=== PATIENT | male | born 1930 | race Caucasian/White ===

== ENCOUNTER 2017-08-20 12:18 | Inpatient (IN) | payer MEDICARE ==
[~2017-08-20] VITALS: Ht 182.9 cm; Wt 86.4 kg
[~2017-08-20 12:18] MED LIST: AMLO10TA4 PO; ATOR20TA66 PO; CARV3.12 PO; CHOL400C8 PO; CLOP75TA35 PO; FOLI0.4T2 PO; GABA-532 PO; MAGN30TA2 PO; MULT-342 PO; RIVA10TA PO; TURM500C7 PO; UBID1CAP54 PO; VITA-104 PO; VITC500T PO; ZINC50TA37 PO
[2017-08-20 12:49] LABS: BASOPHILS % (AUTO) 0.1 % (0-1); EOSINOPHILS # (AUTO) 0.2 X10'3 (0-0.9); HEMATOCRIT 40.8 % (42.0-52.0); HEMOGLOBIN 13.7 g/dl (14.0-17.9); LYMPHOCYTES # (AUTO) 1.1 X10'3 (1.1-4.8); LYMPHOCYTES % (AUTO) 4.9 % (21-51); MEAN CORPUSCULAR HGB CONC 33.6 % (33.0-36.5); MEAN CORPUSCULAR VOLUME 95.2 FL (78-98); MEAN PLATELET VOLUME 7.1 FL (7.4-10.4); MONOCYTES # (AUTO) 0.2 X10'3 (0-0.9); MONOCYTES % (AUTO) 1.1 % (2-12); NEUTROPHILS # (AUTO) 20.8 X10'3 (1.8-7.7); NEUTROPHILS % (AUTO) 92.9 % (42-75); PLATELET COUNT 295 X10'3 (140-440); RED BLOOD COUNT 4.28 X10'6 (4.70-6.10); RED CELL DISTRIBUTION WIDTH 14.6 % (11.5-14.5); WHITE BLOOD COUNT 22.4 X10'3 (4.5-11.0)
[2017-08-20 12:59] LABS: INR 1.2 INR; PARTIAL THROMBOPLASTIN TIME 31 SECONDS (22-32); PROTHROMBIN TIME 11.9 SECONDS (9.0-12.0)
[2017-08-20 13:07] LABS: ALANINE AMINOTRANSFERASE 55 U/L (12-78); ALBUMIN 3.4 G/DL (3.4-5.0); ALBUMIN/GLOBULIN RATIO 0.9 (1.1-1.5); ALKALINE PHOSPHATASE 173 IU/L (46-116); ANION GAP 8 (8-16); ASPARTATE AMINO TRANSFERASE 50 U/L (10-37); BILIRUBIN,TOTAL 1.1 MG/DL (0.1-1.0); BLOOD UREA NITROGEN 16 MG/DL (7-18); BUN/CREATININE RATIO 21.9 (5.4-32.0); CALCIUM 9.1 MG/DL (8.5-10.1); CHLORIDE 101 MMOL/L (99-107); CREATININE 0.73 MG/DL (0.60-1.10); GLUCOSE 113 MG/DL (70-104); MAGNESIUM 1.7 MG/DL (1.5-2.4); POTASSIUM 3.9 MMOL/L (3.5-5.1); SODIUM 135 MMOL/L (135-145); TOTAL CARBON DIOXIDE 25.9 MMOL/L (24-32); eGFR > 90 ML/MIN
[2017-08-20 13:27] LABS: CLARITY,URINE Clear (Clear); COLOR,URINE Yellow (Yellow); GLUCOSE, URINE Negative (Neg); KETONES,URINE Negative (Neg); LEUKOCYTE ESTERASE ,URINE Moderate (Neg); NITRITES, URINE Negative (Neg); OCCULT BLOOD,URINE Small (Neg); PROTEIN,URINE Negative (Neg)
[2017-08-20 13:38] LABS: UA COLLECTION TYPE STRAIGHT CATH
[2017-08-20 13:43] LABS: AMORPHOUS URATES 1+; BACTERIA,URINE 1+ /HPF (Neg); SQUAMOUS EPITHELIAL CELL,UR NONE SEEN /LPF (FEW); WBC CLUMPS,URINE FEW /HPF (NEGATIVE); WBC,URINE 30-50 /HPF (0-4)
[2017-08-20] MEDS ORDERED: normal saline 1000ML IV soln IVB ONE (13:45)
[2017-08-20] MEDS ORDERED: ondansetron 4mg rapidly disintigrating tab PO ONE (14:25)
[2017-08-20] MEDS ORDERED: oxyCODONE IR 5mg (immed. release) tablet PO ONE (14:25)
[2017-08-20] MEDS ORDERED: cefTRIAXone 1g/NS 100ml IVPB 100 ML IV ONE (14:50)
[2017-08-20] MEDS ORDERED: magnesium 2GM in 50ml NS 50 ML IV PRN (15:30)
[2017-08-20] MEDS ORDERED: potassium Cl 40MEQ/NS 500ml 500 ML IV PRN ×2 (15:30)
[2017-08-20] MEDS ORDERED: ondansetron/PF 4mg/2ml inj IV PRN (15:30)
[2017-08-20] MEDS ORDERED: magnesium hydroxide 30ml (MOM) UD suspension PO PRN (15:30)
[2017-08-20] MEDS ORDERED: potassium Cl 20 mEq SR tablet PO PRN ×2 (15:30)
[2017-08-20] MEDS ORDERED: mag hydrox/Alum hydrox/simeth 30ml oral suspension PO PRN (15:30)
[2017-08-20] MEDS ORDERED: azithromycin 250mg tablet PO ONE (15:30)
[2017-08-20] MEDS ORDERED: magnesium Cl slow-release 64mg tablet PO PRN (15:30)
[2017-08-20] MEDS ORDERED: magnesium 4gm in 100ml NS 100 ML IV PRN (15:30)
[2017-08-20 16:30] VITALS: BP 121/62
[2017-08-20] MEDS: acetaminophen 325mg tablet PO PRN (17:44)
[2017-08-20] MEDS ORDERED: MAGNESIUM PO SCH (20:00)
[2017-08-20] MEDS: cholecalciferol (vitamin D) 400 unit tablet PO SCH (21:00)
[2017-08-20] MEDS ORDERED: gabapentin 300mg capsule PO SCH (21:00)
[2017-08-20 22:00] VITALS: BP 154/78
[2017-08-21] MEDS: acetaminophen 325mg tablet PO PRN ×2 (05:04→17:41)
[2017-08-21 06:00] VITALS: BP 133/77
[2017-08-21 06:03] LABS: BASOPHILS # (AUTO) 0.1 X10'3 (0-0.2); BASOPHILS % (AUTO) 0.4 % (0-1); EOSINOPHILS % (AUTO) 0.1 % (0-6); HEMATOCRIT 36.7 % (42.0-52.0); HEMOGLOBIN 12.6 g/dl (14.0-17.9); LYMPHOCYTES # (AUTO) 2.4 X10'3 (1.1-4.8); LYMPHOCYTES % (AUTO) 8.9 % (21-51); MEAN CORPUSCULAR HEMOGLOBIN 32.6 PG (27.0-31.0); MEAN CORPUSCULAR HGB CONC 34.4 % (33.0-36.5); MEAN CORPUSCULAR VOLUME 94.7 FL (78-98); MEAN PLATELET VOLUME 7.2 FL (7.4-10.4); MONOCYTES # (AUTO) 1.9 X10'3 (0-0.9); MONOCYTES % (AUTO) 7.1 % (2-12); NEUTROPHILS # (AUTO) 22.1 X10'3 (1.8-7.7); NEUTROPHILS % (AUTO) 83.5 % (42-75); PLATELET COUNT 273 X10'3 (140-440); RED BLOOD COUNT 3.87 X10'6 (4.70-6.10); RED CELL DISTRIBUTION WIDTH 14.7 % (11.5-14.5)
[2017-08-21 06:17] LABS: WHITE BLOOD COUNT 26.5 X10'3 (4.5-11.0)
[2017-08-21 06:25] LABS: ALANINE AMINOTRANSFERASE 51 U/L (12-78); ALBUMIN 2.9 G/DL (3.4-5.0); ALBUMIN/GLOBULIN RATIO 0.8 (1.1-1.5); ALKALINE PHOSPHATASE 155 IU/L (46-116); ANION GAP 7 (8-16); ASPARTATE AMINO TRANSFERASE 34 U/L (10-37); BILIRUBIN,TOTAL 1.5 MG/DL (0.1-1.0); BLOOD UREA NITROGEN 10 MG/DL (7-18); BUN/CREATININE RATIO 11.8 (5.4-32.0); CALCIUM 8.8 MG/DL (8.5-10.1); CHLORIDE 100 MMOL/L (99-107); CREATININE 0.85 MG/DL (0.60-1.10); GLUCOSE 116 MG/DL (70-104); MAGNESIUM 1.7 MG/DL (1.5-2.4); POTASSIUM 3.8 MMOL/L (3.5-5.1); SODIUM 134 MMOL/L (135-145); TOTAL CARBON DIOXIDE 26.8 MMOL/L (24-32); TOTAL PROTEIN 6.5 G/DL (6.4-8.2); eGFR 86 ML/MIN
[2017-08-21 06:57] LABS: PLATELET ESTIMATE NORMAL; TOTAL CELLS COUNTED 100
[2017-08-21] MEDS: K and/or MAG REPLACEMENT MC SCH (07:48)
[2017-08-21] MEDS: folic acid 0.4mg tablet PO SCH (07:55)
[2017-08-21] MEDS: amLODIPine 5mg tablet PO SCH (07:56)
[2017-08-21] MEDS: zinc sulfate 220mg capsule PO SCH (07:56)
[2017-08-21] MEDS: ascorbic acid 500mg tablet PO SCH (07:56)
[2017-08-21] MEDS: vitamin B comp w/Vit. C tab 1 TAB TABLET PO SCH (07:56)
[2017-08-21] MEDS: atorvastatin 20mg tablet PO SCH (07:56)
[2017-08-21] MEDS: azithromycin 250mg tablet PO SCH (07:56)
[2017-08-21] MEDS: multivitamins, therapeutics tablet PO SCH (07:56)
[2017-08-21] MEDS ORDERED: cefTRIAXone 1g/NS 100ml IVPB 100 ML IV SCH (08:00)
[2017-08-21] MEDS: clopidogrel 75mg tablet PO SCH (08:00)
[2017-08-21] MEDS ORDERED: non-formulary drug (Ubidecarenone/Vit E Acetate (Co Q-10 100 Mg Softgel) 1 EACH) PO SCH (08:00)
[2017-08-21] MEDS: carVEDilol 3.125mg tablet PO SCH (08:00)
[2017-08-21] MEDS ORDERED: rivaroxaban 10mg tablet PO SCH (08:00)
[2017-08-21] MEDS: cholecalciferol (vitamin D) 400 unit tablet PO SCH ×3 (08:00→21:00)
[2017-08-21 10:00] VITALS: BP 122/59
[2017-08-21] MEDS ORDERED: AMLO5TAB10 PO (10:11)
[2017-08-21] MEDS ORDERED: sennosides 8.6mg tablet PO PRN (10:15)
[2017-08-21] MEDS: piperacillin/tazo 3.375gm/50ml 50 ML IV SCH ×3 (10:52→19:58)
[2017-08-21] MEDS: vancomycin/NS 1 GM ADD-VANTAGE 250 ML IV SCH ×2 (11:21→13:47)
[2017-08-21] MEDS: gabapentin 300mg capsule PO SCH ×2 (13:47→20:59)
[2017-08-21] MEDS: potassium Cl 20 mEq SR tablet PO SCH (17:40)
[2017-08-21 18:00] VITALS: BP 128/69
[2017-08-21] MEDS: magnesium oxide 400mg tablet PO SCH (19:58)
[2017-08-21] MEDS: apixaban 5mg tablet PO SCH (19:58)
[2017-08-21] MEDS: Melatonin 3mg tablet PO SCH (20:59)
[2017-08-21] MEDS: ROPINIRole 0.25mg tablet PO SCH (20:59)
[2017-08-21 22:00] VITALS: BP 119/67
[2017-08-21] MEDS: vancomycin inj 1,250 MG in normal saline 250ml IV soln 250 ML IV SCH (23:04)
[2017-08-22] MEDS: piperacillin/tazo 3.375gm/50ml 50 ML IV SCH ×4 (02:02→20:09)
[2017-08-22 06:00] LABS: BASOPHILS % (AUTO) 0.1 % (0-1); EOSINOPHILS # (AUTO) 0.5 X10'3 (0-0.9); EOSINOPHILS % (AUTO) 2.8 % (0-6); HEMATOCRIT 36.9 % (42.0-52.0); HEMOGLOBIN 12.5 g/dl (14.0-17.9); LYMPHOCYTES % (AUTO) 11.5 % (21-51); MEAN CORPUSCULAR HEMOGLOBIN 32.4 PG (27.0-31.0); MEAN CORPUSCULAR VOLUME 95.2 FL (78-98); MEAN PLATELET VOLUME 7.3 FL (7.4-10.4); MONOCYTES # (AUTO) 1.1 X10'3 (0-0.9); MONOCYTES % (AUTO) 6.4 % (2-12); NEUTROPHILS # (AUTO) 13.7 X10'3 (1.8-7.7); NEUTROPHILS % (AUTO) 79.2 % (42-75); PLATELET COUNT 273 X10'3 (140-440); RED BLOOD COUNT 3.88 X10'6 (4.70-6.10); WHITE BLOOD COUNT 17.3 X10'3 (4.5-11.0)
[2017-08-22 06:31] LABS: ALANINE AMINOTRANSFERASE 40 U/L (12-78); ALBUMIN 2.8 G/DL (3.4-5.0); ALBUMIN/GLOBULIN RATIO 0.7 (1.1-1.5); ALKALINE PHOSPHATASE 152 IU/L (46-116); ANION GAP 6 (8-16); ASPARTATE AMINO TRANSFERASE 23 U/L (10-37); BILIRUBIN,TOTAL 0.8 MG/DL (0.1-1.0); BLOOD UREA NITROGEN 10 MG/DL (7-18); CHLORIDE 103 MMOL/L (99-107); CREATININE 0.91 MG/DL (0.60-1.10); GLUCOSE 123 MG/DL (70-104); MAGNESIUM 1.8 MG/DL (1.5-2.4); POTASSIUM 3.9 MMOL/L (3.5-5.1); SODIUM 139 MMOL/L (135-145); TOTAL CARBON DIOXIDE 29.7 MMOL/L (24-32); TOTAL PROTEIN 6.6 G/DL (6.4-8.2); eGFR 79 ML/MIN
[2017-08-22 07:10] VITALS: BP 143/74
[2017-08-22] MEDS: azithromycin 250mg tablet PO SCH (07:37)
[2017-08-22] MEDS: potassium Cl 20 mEq SR tablet PO SCH ×2 (07:37→17:50)
[2017-08-22] MEDS: vitamin B comp w/Vit. C tab 1 TAB TABLET PO SCH (07:38)
[2017-08-22] MEDS: aspirin 81mg tab.chew PO SCH (07:38)
[2017-08-22] MEDS: cholecalciferol (vitamin D) 400 unit tablet PO SCH ×3 (07:38→20:10)
[2017-08-22] MEDS: amLODIPine 5mg tablet PO SCH (07:38)
[2017-08-22] MEDS: zinc sulfate 220mg capsule PO SCH (07:39)
[2017-08-22] MEDS: apixaban 5mg tablet PO SCH ×2 (07:39→20:09)
[2017-08-22] MEDS: gabapentin 300mg capsule PO SCH ×3 (07:39→20:09)
[2017-08-22] MEDS: furosemide 40mg tablet PO SCH (07:39)
[2017-08-22] MEDS: folic acid 0.4mg tablet PO SCH (07:39)
[2017-08-22] MEDS: multivitamins, therapeutics tablet PO SCH (07:39)
[2017-08-22] MEDS: atorvastatin 20mg tablet PO SCH (07:39)
[2017-08-22] MEDS: magnesium oxide 400mg tablet PO SCH ×2 (07:41→20:09)
[2017-08-22] MEDS: K and/or MAG REPLACEMENT MC SCH (08:00)
[2017-08-22] MEDS: carVEDilol 3.125mg tablet PO SCH (08:00)
[2017-08-22] MEDS: clopidogrel 75mg tablet PO SCH (08:00)
[2017-08-22] MEDS: ascorbic acid 500mg tablet PO SCH (08:25)
[2017-08-22] MEDS: vancomycin inj 1,250 MG in normal saline 250ml IV soln 250 ML IV SCH ×2 (10:41→23:48)
[2017-08-22 11:10] VITALS: BP 129/68
[2017-08-22 18:00] VITALS: BP 137/74
[2017-08-22] MEDS: ROPINIRole 0.25mg tablet PO SCH (20:10)
[2017-08-22] MEDS: acetaminophen 325mg tablet PO PRN (20:10)
[2017-08-22] MEDS: Melatonin 3mg tablet PO SCH (20:17)
[2017-08-22 22:00] VITALS: BP 130/69
[2017-08-22] MEDS ORDERED: albuterol 2.5 MG/3 ML nebule NEB PRN (22:40)
[2017-08-22] MEDS ORDERED: ipratropium/albuterol 3ml nebule NEB SCH (23:00)
[2017-08-22] MEDS ORDERED: ipratropium/albuterol 3ml nebule NEB PRN (23:35)
[2017-08-23 02:00] VITALS: BP 124/59
[2017-08-23] MEDS: piperacillin/tazo 3.375gm/50ml 50 ML IV SCH ×4 (02:28→20:14)
[2017-08-23 06:00] VITALS: BP 132/69
[2017-08-23 06:36] LABS: BASOPHILS % (AUTO) 0.3 % (0-1); EOSINOPHILS # (AUTO) 0.7 X10'3 (0-0.9); EOSINOPHILS % (AUTO) 6.7 % (0-6); HEMATOCRIT 36.3 % (42.0-52.0); HEMOGLOBIN 12.3 g/dl (14.0-17.9); LYMPHOCYTES # (AUTO) 1.9 X10'3 (1.1-4.8); LYMPHOCYTES % (AUTO) 18.4 % (21-51); MEAN CORPUSCULAR HEMOGLOBIN 32.1 PG (27.0-31.0); MEAN CORPUSCULAR HGB CONC 33.9 % (33.0-36.5); MEAN CORPUSCULAR VOLUME 94.9 FL (78-98); MEAN PLATELET VOLUME 7.2 FL (7.4-10.4); MONOCYTES # (AUTO) 0.8 X10'3 (0-0.9); MONOCYTES % (AUTO) 7.7 % (2-12); NEUTROPHILS # (AUTO) 6.8 X10'3 (1.8-7.7); NEUTROPHILS % (AUTO) 66.9 % (42-75); PLATELET COUNT 321 X10'3 (140-440); RED BLOOD COUNT 3.83 X10'6 (4.70-6.10); RED CELL DISTRIBUTION WIDTH 14.8 % (11.5-14.5); WHITE BLOOD COUNT 10.2 X10'3 (4.5-11.0)
[2017-08-23 06:56] LABS: ALANINE AMINOTRANSFERASE 35 U/L (12-78); ALBUMIN 2.6 G/DL (3.4-5.0); ALBUMIN/GLOBULIN RATIO 0.7 (1.1-1.5); ALKALINE PHOSPHATASE 170 IU/L (46-116); ANION GAP 4 (8-16); ASPARTATE AMINO TRANSFERASE 22 U/L (10-37); BILIRUBIN,TOTAL 0.6 MG/DL (0.1-1.0); BLOOD UREA NITROGEN 6 MG/DL (7-18); BUN/CREATININE RATIO 7.3 (5.4-32.0); CALCIUM 8.9 MG/DL (8.5-10.1); CHLORIDE 106 MMOL/L (99-107); CREATININE 0.82 MG/DL (0.60-1.10); GLUCOSE 113 MG/DL (70-104); MAGNESIUM 1.9 MG/DL (1.5-2.4); POTASSIUM 3.9 MMOL/L (3.5-5.1); SODIUM 140 MMOL/L (135-145); TOTAL CARBON DIOXIDE 29.6 MMOL/L (24-32); TOTAL PROTEIN 6.2 G/DL (6.4-8.2); eGFR 90 ML/MIN
[2017-08-23] MEDS: K and/or MAG REPLACEMENT MC SCH (07:34)
[2017-08-23] MEDS: carVEDilol 3.125mg tablet PO SCH (07:35)
[2017-08-23] MEDS: clopidogrel 75mg tablet PO SCH (07:42)
[2017-08-23] MEDS: LACTOBACILLUS RHAMNOSUS GG 15 billion unit sprinkle caps PO SCH (07:45)
[2017-08-23] MEDS: amLODIPine 5mg tablet PO SCH (07:46)
[2017-08-23] MEDS: magnesium oxide 400mg tablet PO SCH ×2 (07:46→20:13)
[2017-08-23] MEDS: furosemide 40mg tablet PO SCH (07:46)
[2017-08-23] MEDS: folic acid 0.4mg tablet PO SCH (07:46)
[2017-08-23] MEDS: gabapentin 300mg capsule PO SCH ×3 (07:46→20:13)
[2017-08-23] MEDS: atorvastatin 20mg tablet PO SCH (07:46)
[2017-08-23] MEDS: apixaban 5mg tablet PO SCH ×2 (07:46→20:13)
[2017-08-23] MEDS: ascorbic acid 500mg tablet PO SCH (07:47)
[2017-08-23] MEDS: vitamin B comp w/Vit. C tab 1 TAB TABLET PO SCH (07:47)
[2017-08-23] MEDS: potassium Cl 20 mEq SR tablet PO SCH ×2 (07:47→17:45)
[2017-08-23] MEDS: azithromycin 250mg tablet PO SCH (07:47)
[2017-08-23] MEDS: multivitamins, therapeutics tablet PO SCH (07:47)
[2017-08-23] MEDS: zinc sulfate 220mg capsule PO SCH (07:47)
[2017-08-23] MEDS: aspirin 81mg tab.chew PO SCH (07:47)
[2017-08-23] MEDS: cholecalciferol (vitamin D) 400 unit tablet PO SCH ×3 (07:47→20:11)
[2017-08-23 10:00] VITALS: BP 121/69
[2017-08-23] MEDS ORDERED: VANCOMYCIN LEVEL IV NR (10:30)
[2017-08-23 18:00] VITALS: BP 125/72
[2017-08-23] MEDS ORDERED: CIPR-230 PO (19:50)
[2017-08-23] MEDS ORDERED: FLO0.4C PO (19:51)
[2017-08-23] MEDS: ROPINIRole 0.25mg tablet PO SCH (20:13)
[2017-08-23] MEDS: Melatonin 3mg tablet PO SCH (20:13)
[2017-08-23 22:00] VITALS: BP 126/69
[2017-08-24] MEDS: piperacillin/tazo 3.375gm/50ml 50 ML IV SCH ×2 (02:25→09:24)
[2017-08-24 05:00] VITALS: BP 158/53
[2017-08-24 06:30] LABS: BASOPHILS % (AUTO) 0.4 % (0-1); EOSINOPHILS # (AUTO) 0.7 X10'3 (0-0.9); EOSINOPHILS % (AUTO) 6.8 % (0-6); HEMATOCRIT 37.3 % (42.0-52.0); HEMOGLOBIN 12.7 g/dl (14.0-17.9); LYMPHOCYTES # (AUTO) 2.3 X10'3 (1.1-4.8); MEAN CORPUSCULAR HEMOGLOBIN 32.4 PG (27.0-31.0); MEAN CORPUSCULAR VOLUME 95.4 FL (78-98); MEAN PLATELET VOLUME 7.3 FL (7.4-10.4); MONOCYTES # (AUTO) 0.8 X10'3 (0-0.9); MONOCYTES % (AUTO) 8.2 % (2-12); NEUTROPHILS # (AUTO) 6.5 X10'3 (1.8-7.7); NEUTROPHILS % (AUTO) 62.6 % (42-75); PLATELET COUNT 318 X10'3 (140-440); RED BLOOD COUNT 3.91 X10'6 (4.70-6.10); RED CELL DISTRIBUTION WIDTH 15.4 % (11.5-14.5); WHITE BLOOD COUNT 10.3 X10'3 (4.5-11.0)
[2017-08-24 06:42] LABS: ALANINE AMINOTRANSFERASE 38 U/L (12-78); ALBUMIN 2.5 G/DL (3.4-5.0); ALBUMIN/GLOBULIN RATIO 0.6 (1.1-1.5); ALKALINE PHOSPHATASE 132 IU/L (46-116); ANION GAP 5 (8-16); ASPARTATE AMINO TRANSFERASE 33 U/L (10-37); BILIRUBIN,TOTAL 0.6 MG/DL (0.1-1.0); BLOOD UREA NITROGEN 8 MG/DL (7-18); CALCIUM 9.2 MG/DL (8.5-10.1); CHLORIDE 106 MMOL/L (99-107); GLUCOSE 98 MG/DL (70-104); POTASSIUM 3.9 MMOL/L (3.5-5.1); SODIUM 138 MMOL/L (135-145); TOTAL CARBON DIOXIDE 26.7 MMOL/L (24-32); TOTAL PROTEIN 6.4 G/DL (6.4-8.2); eGFR > 90 ML/MIN
[2017-08-24] MEDS: K and/or MAG REPLACEMENT MC SCH (08:00)
[2017-08-24] MEDS: apixaban 5mg tablet PO SCH (09:22)
[2017-08-24] MEDS: LACTOBACILLUS RHAMNOSUS GG 15 billion unit sprinkle caps PO SCH (09:22)
[2017-08-24] MEDS: vitamin B comp w/Vit. C tab 1 TAB TABLET PO SCH (09:23)
[2017-08-24] MEDS: furosemide 40mg tablet PO SCH (09:23)
[2017-08-24] MEDS: folic acid 0.4mg tablet PO SCH (09:23)
[2017-08-24] MEDS: amLODIPine 5mg tablet PO SCH (09:23)
[2017-08-24] MEDS: atorvastatin 20mg tablet PO SCH (09:23)
[2017-08-24] MEDS: magnesium oxide 400mg tablet PO SCH (09:23)
[2017-08-24] MEDS: gabapentin 300mg capsule PO SCH (09:23)
[2017-08-24] MEDS: aspirin 81mg tab.chew PO SCH (09:24)
[2017-08-24] MEDS: cholecalciferol (vitamin D) 400 unit tablet PO SCH (09:24)
[2017-08-24] MEDS: zinc sulfate 220mg capsule PO SCH (09:24)
[2017-08-24] MEDS: potassium Cl 20 mEq SR tablet PO SCH (09:24)
[2017-08-24] MEDS: ascorbic acid 500mg tablet PO SCH (09:24)
[2017-08-24] MEDS: multivitamins, therapeutics tablet PO SCH (09:24)
[2017-08-24] MEDS ORDERED: VANCOMYCIN LEVEL IV ONE (23:30)
== END 2017-08-24 10:30 | disposition home or self-care (01) | DRG 871 ==
LOC: ER 12:19 → ED HOLD 15:28 → EDBEDREQ 15:57 → ORTHO 4S 16:30
PROVIDERS: ADMIT Legal Medicine; ATTEND Legal Medicine
DX: A41.9 Sepsis, unspecified organism (principal); G92 Toxic encephalopathy; J18.9 Pneumonia, unspecified organism; N39.0 Urinary tract infection, site not specified; I69.354 Hemiplegia and hemiparesis following cerebral infarction affecting left non-dominant side; I48.92 Unspecified atrial flutter; M19.90 Unspecified osteoarthritis, unspecified site; I10 Essential (primary) hypertension; E78.5 Hyperlipidemia, unspecified; I25.10 Atherosclerotic heart disease of native coronary artery without angina pectoris; B96.5 Pseudomonas (aeruginosa) (mallei) (pseudomallei) as the cause of diseases classified elsewhere; Z95.1 Presence of aortocoronary bypass graft; Z90.49 Acquired absence of other specified parts of digestive tract; Z95.5 Presence of coronary angioplasty implant and graft; Z88.6 Allergy status to analgesic agent; Z79.899 Other long term (current) drug therapy; Z79.01 Long term (current) use of anticoagulants; Z79.82 Long term (current) use of aspirin
CPT/HCPCS: 36415; 71045; 74176; 80053; 80202; 81001; 83605; 83735; 84145; 85025; 85610; 85730; 87040; 87070; 87077; 87088; 87186; 87502; 87503; 93005; 94760; 96361; 96365; 97110; 97116; 97162; 99285; A4353; J0696; J2270; J2405; J2543; J3370; J7030

== ENCOUNTER 2017-08-25 22:01 | Inpatient (IN) | payer MEDICARE ==
[~2017-08-25] VITALS: Ht 188 cm; Wt 86.4 kg
[~2017-08-25 22:01] MED LIST changes: -AMLO10TA4 PO; +AMLO5TAB10 PO; -CARV3.12 PO; +CIPR-230 PO; -CLOP75TA35 PO; +FLO0.4C PO; -RIVA10TA PO
[2017-08-25 22:29] LABS: BASOPHILS # (AUTO) 0.1 X10'3 (0-0.2); BASOPHILS % (AUTO) 0.6 % (0-1); EOSINOPHILS # (AUTO) 0.7 X10'3 (0-0.9); EOSINOPHILS % (AUTO) 5.3 % (0-6); HEMATOCRIT 39.4 % (42.0-52.0); HEMOGLOBIN 13.1 g/dl (14.0-17.9); LYMPHOCYTES # (AUTO) 2.7 X10'3 (1.1-4.8); LYMPHOCYTES % (AUTO) 20.7 % (21-51); MEAN CORPUSCULAR HEMOGLOBIN 31.7 PG (27.0-31.0); MEAN CORPUSCULAR HGB CONC 33.4 % (33.0-36.5); MEAN CORPUSCULAR VOLUME 95.2 FL (78-98); MEAN PLATELET VOLUME 7.4 FL (7.4-10.4); MONOCYTES # (AUTO) 0.7 X10'3 (0-0.9); MONOCYTES % (AUTO) 5.6 % (2-12); NEUTROPHILS # (AUTO) 8.8 X10'3 (1.8-7.7); NEUTROPHILS % (AUTO) 67.8 % (42-75); PLATELET COUNT 482 X10'3 (140-440); RED BLOOD COUNT 4.14 X10'6 (4.70-6.10); RED CELL DISTRIBUTION WIDTH 13.8 % (11.5-14.5); WHITE BLOOD COUNT 12.9 X10'3 (4.5-11.0)
[2017-08-25 22:37] LABS: INR 1.1 INR; PARTIAL THROMBOPLASTIN TIME 28 SECONDS (22-32); PROTHROMBIN TIME 11.5 SECONDS (9.0-12.0)
[2017-08-25 22:39] LABS: ALANINE AMINOTRANSFERASE 34 U/L (12-78); ALBUMIN/GLOBULIN RATIO 0.7 (1.1-1.5); ALKALINE PHOSPHATASE 144 IU/L (46-116); ANION GAP 8 (8-16); ASPARTATE AMINO TRANSFERASE 24 U/L (10-37); BILIRUBIN,TOTAL 0.4 MG/DL (0.1-1.0); BLOOD UREA NITROGEN 14 MG/DL (7-18); BUN/CREATININE RATIO 12.7 (5.4-32.0); CALCIUM 9.7 MG/DL (8.5-10.1); CHLORIDE 106 MMOL/L (99-107); GLUCOSE 118 MG/DL (70-104); POTASSIUM 4.2 MMOL/L (3.5-5.1); SODIUM 143 MMOL/L (135-145); TOTAL CARBON DIOXIDE 28.9 MMOL/L (24-32); TOTAL PROTEIN 7.1 G/DL (6.4-8.2); eGFR 64 ML/MIN
[2017-08-25 22:45] LABS: CLARITY,URINE Clear (Clear); COLOR,URINE Dark Yellow (Yellow); GLUCOSE, URINE Negative (Neg); KETONES,URINE Trace mg/dl (Neg); LEUKOCYTE ESTERASE ,URINE Small (Neg); NITRITES, URINE Negative (Neg); OCCULT BLOOD,URINE Trace-Intact (Neg); PH,URINE 5.5 (4.8-8.0); PROTEIN,URINE Trace mg/dl (Neg)
[2017-08-25 22:47] LABS: UA COLLECTION TYPE STRAIGHT CATH
[2017-08-25 22:51] LABS: BACTERIA,URINE 1+ /HPF (Neg); MUCUS STRANDS FEW /LPF (Neg); RBC,URINE 0-2 /HPF (0-2); SQUAMOUS EPITHELIAL CELL,UR NONE SEEN /LPF (FEW)
[2017-08-25] MEDS ORDERED: CefTRIAXone 2gm/NS 100ml IVPB 100 ML IV ONE (23:25)
[2017-08-25] MEDS ORDERED: normal saline 1000ML IV soln IVB ONE (23:25)
[2017-08-26] MEDS ORDERED: mag hydrox/Alum hydrox/simeth 30ml oral suspension PO PRN (01:55)
[2017-08-26] MEDS ORDERED: magnesium Cl slow-release 64mg tablet PO PRN (01:55)
[2017-08-26] MEDS ORDERED: HYDROcodone/acetaminophen 5mg/325mg tablet PO PRN (01:55)
[2017-08-26] MEDS ORDERED: acetaminophen 325mg tablet PO PRN (01:55)
[2017-08-26] MEDS ORDERED: magnesium 2GM in 50ml NS 50 ML IV PRN (01:55)
[2017-08-26] MEDS ORDERED: magnesium hydroxide 30ml (MOM) UD suspension PO PRN (01:55)
[2017-08-26] MEDS ORDERED: ondansetron/PF 4mg/2ml inj IV PRN (01:55)
[2017-08-26] MEDS ORDERED: potassium Cl 20 mEq SR tablet PO PRN ×2 (01:55)
[2017-08-26] MEDS ORDERED: amoxicillin 250mg capsule PO ONE (01:55)
[2017-08-26] MEDS ORDERED: potassium Cl 40MEQ/NS 500ml 500 ML IV PRN ×2 (01:55)
[2017-08-26] MEDS ORDERED: magnesium 4gm in 100ml NS 100 ML IV PRN (01:55)
[2017-08-26 02:21] LABS: CHOL/HDL RATIO 3.6 (0.00-4.99); CHOLESTEROL 111 MG/DL (0-200); HDL CHOLESTEROL 31 MG/DL (35-60); LDL CHOLESTEROL 69 MG/DL (50-100); TRIGLYCERIDES 59 MG/DL (20-135)
[2017-08-26] MEDS: normal saline 1000ml 1,000 ML IV SCH ×3 (02:27→19:05)
[2017-08-26 03:00] VITALS: BP 105/67
[2017-08-26 08:00] VITALS: BP 122/66
[2017-08-26] MEDS ORDERED: non-formulary drug (Ubidecarenone/Vit E Acetate (Co Q-10 100 Mg Softgel) 1 EACH) PO SCH (08:00)
[2017-08-26] MEDS: K and/or MAG REPLACEMENT MC SCH (08:00)
[2017-08-26] MEDS ORDERED: MAGNESIUM PO SCH (08:00)
[2017-08-26] MEDS ORDERED: heparin, porcine 5000 units/ml vial SQ SCH (08:00)
[2017-08-26] MEDS: vitamin B comp w/Vit. C tab 1 TAB TABLET PO SCH (09:38)
[2017-08-26] MEDS: multivitamins, therapeutics tablet PO SCH (09:38)
[2017-08-26] MEDS: LACTOBACILLUS RHAMNOSUS GG 15 billion unit sprinkle caps PO SCH (09:38)
[2017-08-26] MEDS: ascorbic acid 500mg tablet PO SCH (09:38)
[2017-08-26] MEDS: zinc sulfate 220mg capsule PO SCH (09:39)
[2017-08-26] MEDS: folic acid 0.4mg tablet PO SCH (09:39)
[2017-08-26] MEDS: aspirin 81mg tablet.DR PO SCH (09:39)
[2017-08-26] MEDS: atorvastatin 20mg tablet PO SCH (09:39)
[2017-08-26] MEDS: cholecalciferol (vitamin D) 400 unit tablet PO SCH ×3 (10:03→20:31)
[2017-08-26 11:00] VITALS: BP 108/63
[2017-08-26] MEDS ORDERED: MAGN400T6 PO (12:34)
[2017-08-26] MEDS ORDERED: GABA-532 PO (12:34)
[2017-08-26] MEDS ORDERED: POTA-82 PO (12:34)
[2017-08-26] MEDS ORDERED: FURO40TA4 PO (12:34)
[2017-08-26] MEDS ORDERED: ASPI81TA52 PO (12:34)
[2017-08-26] MEDS ORDERED: APIX5TAB3 PO (12:34)
[2017-08-26] MEDS ORDERED: MELA3TAB PO (12:34)
[2017-08-26] MEDS ORDERED: SENN-161 PO (12:34)
[2017-08-26] MEDS ORDERED: ROPI0.5T2 PO (12:34)
[2017-08-26] MEDS ORDERED: OMEP40CA37 PO (12:34)
[2017-08-26] MEDS ORDERED: RANI-366 PO (12:40)
[2017-08-26] MEDS ORDERED: LISI10TA4 PO (12:40)
[2017-08-26] MEDS ORDERED: normal saline 1000ml 1,000 ML IV ONE (17:35)
[2017-08-26 18:00] VITALS: BP_SYST 130; BP_SYST 148; BP_DIAS 67; BP_DIAS 81
[2017-08-26 19:00] VITALS: BP 148/81
[2017-08-26] MEDS: apixaban 5mg tablet PO SCH (20:21)
[2017-08-26] MEDS: tamsulosin 0.4mg capsule PO SCH (20:21)
[2017-08-26] MEDS: Melatonin 3mg tablet PO SCH (20:21)
[2017-08-26] MEDS: CefTRIAXone 2gm/NS 100ml IVPB 100 ML IV SCH (20:22)
[2017-08-26] MEDS: gabapentin 300mg capsule PO SCH (20:22)
[2017-08-26] MEDS ORDERED: gabapentin 300mg capsule PO SCH (21:00)
[2017-08-26] MEDS: HYDROcodone/acetaminophen 10/325mg tab PO PRN (22:12)
[2017-08-27] VITALS: BP 140/75
[2017-08-27] MEDS: normal saline 1000ml 1,000 ML IV SCH ×3 (03:04→22:28)
[2017-08-27 05:25] LABS: BASOPHILS % (AUTO) 0.3 % (0-1); EOSINOPHILS % (AUTO) 10.5 % (0-6); HEMATOCRIT 33.3 % (42.0-52.0); HEMOGLOBIN 11.1 g/dl (14.0-17.9); LYMPHOCYTES # (AUTO) 2.2 X10'3 (1.1-4.8); LYMPHOCYTES % (AUTO) 22.5 % (21-51); MEAN CORPUSCULAR HGB CONC 33.4 % (33.0-36.5); MEAN CORPUSCULAR VOLUME 95.6 FL (78-98); MEAN PLATELET VOLUME 7.2 FL (7.4-10.4); MONOCYTES # (AUTO) 0.7 X10'3 (0-0.9); MONOCYTES % (AUTO) 6.8 % (2-12); NEUTROPHILS # (AUTO) 5.9 X10'3 (1.8-7.7); NEUTROPHILS % (AUTO) 59.9 % (42-75); PLATELET COUNT 394 X10'3 (140-440); RED BLOOD COUNT 3.49 X10'6 (4.70-6.10); RED CELL DISTRIBUTION WIDTH 14.6 % (11.5-14.5); WHITE BLOOD COUNT 9.8 X10'3 (4.5-11.0)
[2017-08-27 06:08] LABS: ALANINE AMINOTRANSFERASE 24 U/L (12-78); ALBUMIN 2.4 G/DL (3.4-5.0); ALBUMIN/GLOBULIN RATIO 0.7 (1.1-1.5); ALKALINE PHOSPHATASE 112 IU/L (46-116); ANION GAP 7 (8-16); ASPARTATE AMINO TRANSFERASE 19 U/L (10-37); BILIRUBIN,TOTAL 0.3 MG/DL (0.1-1.0); BLOOD UREA NITROGEN 9 MG/DL (7-18); BUN/CREATININE RATIO 12.9 (5.4-32.0); CALCIUM 8.7 MG/DL (8.5-10.1); CHLORIDE 109 MMOL/L (99-107); CHOL/HDL RATIO 3.5 (0.00-4.99); CHOLESTEROL 95 MG/DL (0-200); GLUCOSE 94 MG/DL (70-104); HDL CHOLESTEROL 27 MG/DL (35-60); LDL CHOLESTEROL 59 MG/DL (50-100); MAGNESIUM 1.8 MG/DL (1.5-2.4); POTASSIUM 3.8 MMOL/L (3.5-5.1); SODIUM 144 MMOL/L (135-145); TOTAL CARBON DIOXIDE 27.9 MMOL/L (24-32); TOTAL PROTEIN 5.8 G/DL (6.4-8.2); TRIGLYCERIDES 80 MG/DL (20-135); eGFR > 90 ML/MIN
[2017-08-27] MEDS: K and/or MAG REPLACEMENT MC SCH (07:06)
[2017-08-27] MEDS: folic acid 0.4mg tablet PO SCH (07:48)
[2017-08-27] MEDS: atorvastatin 20mg tablet PO SCH (07:48)
[2017-08-27] MEDS: LACTOBACILLUS RHAMNOSUS GG 15 billion unit sprinkle caps PO SCH (07:48)
[2017-08-27] MEDS: zinc sulfate 220mg capsule PO SCH (07:48)
[2017-08-27] MEDS: multivitamins, therapeutics tablet PO SCH (07:48)
[2017-08-27] MEDS: magnesium oxide 400mg tablet PO SCH (07:48)
[2017-08-27] MEDS: ascorbic acid 500mg tablet PO SCH (07:48)
[2017-08-27] MEDS: vitamin B comp w/Vit. C tab 1 TAB TABLET PO SCH (07:49)
[2017-08-27] MEDS: cholecalciferol (vitamin D) 400 unit tablet PO SCH ×3 (07:49→20:41)
[2017-08-27] MEDS: aspirin 81mg tablet.DR PO SCH (07:49)
[2017-08-27] MEDS: apixaban 5mg tablet PO SCH ×2 (07:49→20:40)
[2017-08-27] MEDS ORDERED: aspirin 81mg tablet.DR PO SCH (08:00)
[2017-08-27] MEDS: gabapentin 300mg capsule PO SCH ×2 (13:46→20:40)
[2017-08-27 18:00] VITALS: BP 138/75
[2017-08-27] MEDS: CefTRIAXone 2gm/NS 100ml IVPB 100 ML IV SCH (20:33)
[2017-08-27] MEDS: tamsulosin 0.4mg capsule PO SCH (20:40)
[2017-08-27] MEDS: Melatonin 3mg tablet PO SCH (20:41)
[2017-08-28] VITALS: BP 149/80
[2017-08-28] MEDS: normal saline 1000ml 1,000 ML IV SCH ×3 (05:34→15:50)
[2017-08-28 05:37] LABS: BASOPHILS % (AUTO) 0.3 % (0-1); EOSINOPHILS # (AUTO) 0.8 X10'3 (0-0.9); EOSINOPHILS % (AUTO) 9.1 % (0-6); HEMATOCRIT 34.4 % (42.0-52.0); HEMOGLOBIN 11.6 g/dl (14.0-17.9); LYMPHOCYTES % (AUTO) 23.1 % (21-51); MEAN CORPUSCULAR HGB CONC 33.7 % (33.0-36.5); MEAN PLATELET VOLUME 6.9 FL (7.4-10.4); MONOCYTES # (AUTO) 0.8 X10'3 (0-0.9); MONOCYTES % (AUTO) 8.7 % (2-12); NEUTROPHILS # (AUTO) 5.1 X10'3 (1.8-7.7); NEUTROPHILS % (AUTO) 58.8 % (42-75); PLATELET COUNT 424 X10'3 (140-440); RED BLOOD COUNT 3.62 X10'6 (4.70-6.10); RED CELL DISTRIBUTION WIDTH 15.1 % (11.5-14.5); WHITE BLOOD COUNT 8.7 X10'3 (4.5-11.0)
[2017-08-28 06:23] LABS: ALANINE AMINOTRANSFERASE 22 U/L (12-78); ALBUMIN 2.5 G/DL (3.4-5.0); ALBUMIN/GLOBULIN RATIO 0.7 (1.1-1.5); ALKALINE PHOSPHATASE 114 IU/L (46-116); ANION GAP 8 (8-16); ASPARTATE AMINO TRANSFERASE 19 U/L (10-37); BILIRUBIN,TOTAL 0.4 MG/DL (0.1-1.0); BLOOD UREA NITROGEN 5 MG/DL (7-18); BUN/CREATININE RATIO 8.3 (5.4-32.0); CALCIUM 8.7 MG/DL (8.5-10.1); CHLORIDE 110 MMOL/L (99-107); GLUCOSE 94 MG/DL (70-104); MAGNESIUM 1.9 MG/DL (1.5-2.4); POTASSIUM 3.5 MMOL/L (3.5-5.1); SODIUM 145 MMOL/L (135-145); TOTAL CARBON DIOXIDE 27.5 MMOL/L (24-32); TOTAL PROTEIN 5.9 G/DL (6.4-8.2); eGFR > 90 ML/MIN
[2017-08-28 07:28] VITALS: BP 156/76
[2017-08-28] MEDS: K and/or MAG REPLACEMENT MC SCH (08:00)
[2017-08-28] MEDS: aspirin 81mg tablet.DR PO SCH (09:44)
[2017-08-28] MEDS: LACTOBACILLUS RHAMNOSUS GG 15 billion unit sprinkle caps PO SCH (09:44)
[2017-08-28] MEDS: apixaban 5mg tablet PO SCH ×2 (09:44→19:44)
[2017-08-28] MEDS: atorvastatin 20mg tablet PO SCH (09:45)
[2017-08-28] MEDS: folic acid 0.4mg tablet PO SCH (09:45)
[2017-08-28] MEDS: ascorbic acid 500mg tablet PO SCH (09:46)
[2017-08-28] MEDS: vitamin B comp w/Vit. C tab 1 TAB TABLET PO SCH (09:46)
[2017-08-28] MEDS: multivitamins, therapeutics tablet PO SCH (09:46)
[2017-08-28] MEDS: magnesium oxide 400mg tablet PO SCH (09:46)
[2017-08-28] MEDS: zinc sulfate 220mg capsule PO SCH (09:47)
[2017-08-28] MEDS: cholecalciferol (vitamin D) 400 unit tablet PO SCH ×3 (09:47→19:44)
[2017-08-28 11:57] VITALS: BP 141/71
[2017-08-28] MEDS: gabapentin 300mg capsule PO SCH ×2 (12:28→21:11)
[2017-08-28 19:00] VITALS: BP 137/75
[2017-08-28] MEDS: HYDROcodone/acetaminophen 10/325mg tab PO PRN (19:45)
[2017-08-28] MEDS: Melatonin 3mg tablet PO SCH (21:11)
[2017-08-28] MEDS: tamsulosin 0.4mg capsule PO SCH (21:11)
[2017-08-28] MEDS: CefTRIAXone 2gm/NS 100ml IVPB 100 ML IV SCH (21:11)
[2017-08-28 23:00] VITALS: BP 134/73
[2017-08-29] MEDS: normal saline 1000ml 1,000 ML IV SCH ×3 (00:36→16:58)
[2017-08-29 05:33] LABS: BASOPHILS % (AUTO) 0.4 % (0-1); EOSINOPHILS # (AUTO) 0.5 X10'3 (0-0.9); EOSINOPHILS % (AUTO) 6.5 % (0-6); HEMATOCRIT 32.9 % (42.0-52.0); HEMOGLOBIN 11.2 g/dl (14.0-17.9); LYMPHOCYTES # (AUTO) 2.3 X10'3 (1.1-4.8); LYMPHOCYTES % (AUTO) 28.6 % (21-51); MEAN CORPUSCULAR HEMOGLOBIN 32.1 PG (27.0-31.0); MEAN CORPUSCULAR HGB CONC 33.9 % (33.0-36.5); MEAN CORPUSCULAR VOLUME 94.5 FL (78-98); MEAN PLATELET VOLUME 6.9 FL (7.4-10.4); MONOCYTES # (AUTO) 0.7 X10'3 (0-0.9); MONOCYTES % (AUTO) 8.6 % (2-12); NEUTROPHILS # (AUTO) 4.6 X10'3 (1.8-7.7); NEUTROPHILS % (AUTO) 55.9 % (42-75); PLATELET COUNT 427 X10'3 (140-440); RED BLOOD COUNT 3.48 X10'6 (4.70-6.10); RED CELL DISTRIBUTION WIDTH 14.3 % (11.5-14.5); WHITE BLOOD COUNT 8.1 X10'3 (4.5-11.0)
[2017-08-29 06:03] LABS: ALANINE AMINOTRANSFERASE 21 U/L (12-78); ALBUMIN 2.4 G/DL (3.4-5.0); ALBUMIN/GLOBULIN RATIO 0.7 (1.1-1.5); ALKALINE PHOSPHATASE 114 IU/L (46-116); ANION GAP 6 (8-16); ASPARTATE AMINO TRANSFERASE 24 U/L (10-37); BILIRUBIN,TOTAL 0.4 MG/DL (0.1-1.0); BLOOD UREA NITROGEN 5 MG/DL (7-18); BUN/CREATININE RATIO 8.3 (5.4-32.0); CALCIUM 8.7 MG/DL (8.5-10.1); CHLORIDE 109 MMOL/L (99-107); GLUCOSE 92 MG/DL (70-104); MAGNESIUM 1.8 MG/DL (1.5-2.4); SODIUM 141 MMOL/L (135-145); TOTAL CARBON DIOXIDE 26.3 MMOL/L (24-32); TOTAL PROTEIN 5.9 G/DL (6.4-8.2); eGFR > 90 ML/MIN
[2017-08-29 06:12] LABS: POTASSIUM 3.5 MMOL/L (3.5-5.1)
[2017-08-29 07:32] VITALS: BP 142/85
[2017-08-29] MEDS: K and/or MAG REPLACEMENT MC SCH (08:00)
[2017-08-29] MEDS: LACTOBACILLUS RHAMNOSUS GG 15 billion unit sprinkle caps PO SCH (08:51)
[2017-08-29] MEDS: aspirin 81mg tablet.DR PO SCH (08:52)
[2017-08-29] MEDS: apixaban 5mg tablet PO SCH (08:52)
[2017-08-29] MEDS: folic acid 0.4mg tablet PO SCH (08:52)
[2017-08-29] MEDS: atorvastatin 20mg tablet PO SCH (08:53)
[2017-08-29] MEDS: magnesium oxide 400mg tablet PO SCH (08:53)
[2017-08-29] MEDS: vitamin B comp w/Vit. C tab 1 TAB TABLET PO SCH (08:54)
[2017-08-29] MEDS: ascorbic acid 500mg tablet PO SCH (08:54)
[2017-08-29] MEDS: multivitamins, therapeutics tablet PO SCH (08:54)
[2017-08-29] MEDS: cholecalciferol (vitamin D) 400 unit tablet PO SCH ×2 (08:56→12:41)
[2017-08-29] MEDS: zinc sulfate 220mg capsule PO SCH (08:56)
[2017-08-29 11:47] VITALS: BP 133/72
[2017-08-29] MEDS: gabapentin 300mg capsule PO SCH (12:41)
== END 2017-08-29 17:30 | DRG 314 ==
LOC: ER 22:01 → ED HOLD 08-26 01:51 → SUR 3N 08-26 03:00
PROVIDERS: ADMIT Internal Medicine; ATTEND Internal Medicine
DX: I95.9 Hypotension, unspecified (principal); G93.40 Encephalopathy, unspecified; F05 Delirium due to known physiological condition; I48.92 Unspecified atrial flutter; N39.0 Urinary tract infection, site not specified; I69.352 Hemiplegia and hemiparesis following cerebral infarction affecting left dominant side; D64.9 Anemia, unspecified; I65.23 Occlusion and stenosis of bilateral carotid arteries; R55 Syncope and collapse; D47.3 Essential (hemorrhagic) thrombocythemia; E86.0 Dehydration; F03.90 Unspecified dementia, unspecified severity, without behavioral disturbance, psychotic disturbance, mood disturbance, and anxiety; H66.92 Otitis media, unspecified, left ear; E03.9 Hypothyroidism, unspecified; G57.93 Unspecified mononeuropathy of bilateral lower limbs; M19.90 Unspecified osteoarthritis, unspecified site; N40.0 Benign prostatic hyperplasia without lower urinary tract symptoms; E78.5 Hyperlipidemia, unspecified; I10 Essential (primary) hypertension; I25.10 Atherosclerotic heart disease of native coronary artery without angina pectoris; Z98.61 Coronary angioplasty status; Z95.1 Presence of aortocoronary bypass graft; Z90.89 Acquired absence of other organs; Z88.5 Allergy status to narcotic agent; Z79.01 Long term (current) use of anticoagulants; Z79.899 Other long term (current) drug therapy; Z79.82 Long term (current) use of aspirin
CPT/HCPCS: 36415; 70450; 70544; 70551; 71045; 80053; 80061; 81001; 83605; 83735; 84484; 85025; 85610; 85651; 85730; 87040; 87070; 87088; 93005; 93306; 93880; 96365; 97110; 97116; 97161; 97530; 99285; A4353; J0696; J1644; J7030